=== PATIENT | male | born 2000 | race Caucasian/White ===

== ENCOUNTER 2021-09-03 17:59 | Emergency (ER) | payer OTHER ==
[~2021-09-03] VITALS: Ht 178 cm; Wt 115.0 kg
--- NOTE | 2021-09-03 18:32 | ED Neurological Problem ---
General Chief Complaint: Neurological Problems Stated Complaint: FACIAL NUMBNESS, EAR PAIN Source: patient Exam Limitations: no limitations History of Present Illness Date Seen by Provider: Sep 03, 2021 Time Seen by Provider: 18:26 Initial Comments With reports that he awakened with pain behind his left ear this morning and left-sided facial droop. No history of this. He is an international student from [employer] working on his [employer]. [place] 2 [place]. He is having trouble sleeping at night as well. Denies any recent illness fevers or chills. Denies any numbness or pain or tingling to fingers or legs. Timing/Duration: other (12 hours) Severity: moderate Allergies and Home Medications Allergies Coded Allergies: No Known Drug Allergies (Unverified , 09/03/21) Patient Home Medication List Home Medication List Reviewed: Yes Review of Systems Review of Systems Constitutional: see HPI Eyes: No Symptoms Reported, See HPI, Other (Left eye dryness) Ears, Nose, Mouth, Throat: no symptoms reported Respiratory: no symptoms reported Cardiovascular: no symptoms reported Genitourinary: no symptoms reported Musculoskeletal: no symptoms reported Skin: no symptoms reported Psychiatric/Neurological: No Symptoms Reported Endocrine: No Symptoms Reported Physical Exam Vital Signs Capillary Refill : Height, Weight, BMI Height: '" Weight: lbs. oz. kg; BMI Method: General Appearance: WD/WN, no apparent distress HEENT: PERRL/EOMI, normal ENT inspection, TMs normal, other (Tender to palpa tion behind the left ear but no erythema or lesions. No vesicles. Left side of the forehead is flaccid. He is unable to lift left eyebrow as he is able to do on the right. His smile is asymmetrical. Senior Network Security Engineer are equal. No upper or lower extremity deficits.) Respiratory: no respiratory distress, no accessory muscle use Cardiovascular: regular rate, rhythm, no murmur Gastrointestinal: normal bowel sounds, non tender Extremities: normal range of motion, non-tender Neurologic/Psychiatric: alert, normal mood/affect, oriented x 3 Crainal Nerves: normal hearing, normal speech, PERRL, facial asymmetry, facial droop, facial weakness Coordination/Gait: normal finger to nose Skin: normal color, warm/dry Departure Impression Primary Impression: Ojeda's palsy Disposition: 01 HOME, SELF-CARE Condition: Stable Departure-Patient Inst. Decision time for Depature: 18:29 Patient Instructions: Ojeda's Palsy Add. Discharge Instructions: 1. Steroids as directed. Antiviral medications as directed. Follow-up with [facility]. Return to ER for any worsening. Put some Visine drops in your left eye to keep it moistened and put some tape or an eye patch over the left eye to keep it closed at night while you are sleeping. All discharge instructions reviewed with patient and/or family. Voiced unders tanding. Scripts Doxylamine Succinate (Unisom Sleep Aid) 25 Mg Tablet 1-2 TAB PO HS, #14 TAB Prov: GANESH KOROMA APRN 09/03/21 Prednisone (Prednisone) 10 Mg Tab.ds.pk 10 MG PO DAILY, #54 EA Take 6 tabs(60mg)daily for 4 days, then decrease by 1 tab(10mg)every other day. Prov: GANESH KOROMA APRN 09/03/21 Valacyclovir HCl (Valacyclovir) 1,000 Mg Tablet 1000 MG PO TID, #21 TAB Prov: GANESH KOROMA APRN 09/03/21 GANESH KOROMA APRN Sep 03, 2021 18:32
[2021-09-03] MEDS ORDERED: VALA10007 PO (18:33)
[2021-09-03] MEDS ORDERED: PRED10TA22 PO (18:33)
[2021-09-03] MEDS ORDERED: DOXY25TA35 PO (18:33)
[2021-09-03] MEDS ORDERED: predniSONE 20 MG TAB PO ONE (18:45)
[2021-09-03] MEDS ORDERED: VALACYCLOVIR 500 MG TAB (VALTREX) PO SCH (18:45)
[2021-09-03 19:03] VITALS: BP 162/102
== END 2021-09-03 19:00 | disposition home or self-care (01) ==
LOC: ER 18:03
DX: G51.0 Bell's palsy (principal)
CPT/HCPCS: 99283

== ENCOUNTER 2022-07-02 13:29 | Emergency (ER) | payer OTHER ==
[~2022-07-02] VITALS: Ht 180 cm; Wt 95.0 kg
[~2022-07-02 13:29] MED LIST: DOXY25TA35 PO; PRED10TA22 PO; VALA10007 PO
[2022-07-02] MEDS ORDERED: D5 NS 1000 ML IV SOLUTION 1,000 ML IV STA (13:43)
[2022-07-02 13:59] LABS: CHLORIDE 104 MMOL/L (98-107); POTASSIUM 3.9 MMOL/L (3.6-5.0); SODIUM 139 MMOL/L (135-145)
[2022-07-02 14:00] LABS: ALBUMIN 4.9 GM/DL (3.2-4.5); BASOPHILS % (AUTO) 0 % (0-10); EOSINOPHILS % (AUTO) 0 % (0-10); HEMATOCRIT 51 % (40-54); LYMPHOCYTES # (AUTO) 2.1 10^3/uL (1.0-4.0); LYMPHOCYTES % (AUTO) 23 % (12-44); MEAN CORPUSCULAR HEMOGLOBIN 26 pg (25-34); MEAN CORPUSCULAR HGB CONC 34 g/dL (32-36); MEAN CORPUSCULAR VOLUME 77 fL (80-99); MEAN PLATELET VOLUME 10.5 fL (9.0-12.2); MONOCYTES # (AUTO) 0.6 10^3/uL (0.0-1.0); MONOCYTES % (AUTO) 6 % (0-12); NEUTROPHILS # (AUTO) 6.3 10^3/uL (1.8-7.8); NEUTROPHILS % (AUTO) 70 % (42-75); PLATELET COUNT 218 10^3/uL (130-400)
[2022-07-02 14:02] LABS: GLUCOSE 109 MG/DL (70-105); TOTAL PROTEIN 7.5 GM/DL (6.4-8.2)
[2022-07-02 14:03] LABS: CARBON DIOXIDE 19 MMOL/L (21-32)
[2022-07-02 14:04] LABS: BILIRUBIN,TOTAL 2.1 MG/DL (0.1-1.0)
[2022-07-02 14:06] LABS: ALKALINE PHOSPHATASE 76 U/L (40-136); GFR ESTIMATED 127
[2022-07-02] MEDS ORDERED: FAMOTIDINE 20 MG (PEPCID) TABLET PO STA (14:06)
--- NOTE | 2022-07-02 14:06 | ED GI ---
General Chief Complaint: Abdominal/GI Problems Stated Complaint: ELEV BLOOD PRESSURE/WEIGHT LOSS/VOMITING BLOOD Nursing Triage Note: PT CO OF VOMITING TODAY W STREAKS OF BLOOD IN IT. HAS LOST 30# IN A MONTH. PT STATES HAD SYNCOPAL EPIDODE TODAY Source of Information: Patient, Other ([id number]) Exam Limitations: No Limitations History of Present Illness Date Seen by Provider: Jul 02, 2022 Time Seen by Provider: 13:31 Initial Comments 22-year-old male with past medical history of depression and hypertension coming in due to 1 day of nonbloody nonbilious vomiting that eventually turned into vomiting with streaks of blood in it with nonbloody diarrhea and general malaise. He states he has been very stressed out with finals with school, is also having financial issues and potentially is going to get evicted, and has lost roughly 40 pounds in the past month because he does not want to eat due to lack of appetite. Denies any suicidal or homicidal thoughts. Denies any chest pain, shortness of breath, abdominal pain, focal weakness or numbness, or any other concerns. Rarely drinks alcohol, does not take blood thinners, does not use NSAIDs. No history of liver disease that he knows of. Allergies and Home Medications Allergies Coded Allergies: No Known Drug Allergies (Unverified , 09/03/21) Patient Home Medication List Home Medication List Reviewed: Yes Doxylamine Succinate (Unisom Sleep Aid) 25 Mg Tablet, 1-2 TAB PO HS Prescribed by: GANESH KOROMA on 09/03/211832 Prednisone (Prednisone) 10 Mg Tab.ds.pk, 10 MG PO DAILY Prescribed by: GANESH KOROMA on 09/03/211832 Valacyclovir HCl (Valacyclovir) 1,000 Mg Tablet, 1,000 MG PO TID Prescribed by: GANESH KOROMA on 09/03/211832 Review of Systems Review of Systems Constitutional: No fever EENTM: No Symptoms Reported Respiratory: No Symptoms Reported Cardiovascular: No Symptoms Reported Gastrointestinal: See HPI Genitourinary: No Symptoms Reported Musculoskeletal: no symptoms reported Skin: no symptoms reported Psychiatric/Neurological: No Symptoms Reported Endocrine: No Symptoms Reported Hematologic/Lymphatic: No Symptoms Reported All Other Systems Reviewed Negative Unless Noted: Yes Past Aedxyrq-Zkntib-Mpzpta Hx Patient Social History Tobacco Use?: Yes Tobacco type used: Cigarettes Smoking Status: Current Everyday Smoker Substance use?: Yes Substance type: Marijuana Substance frequency: Once in a while Alcohol Use?: Yes Alcohol type: Beer Alcohol Frequency: Rarely Pt feels they are or have been: No Immunizations Up To Date First/Initial COVID19 Vaccinat: YES Second COVID19 Vaccination Braden: YES Third COVID19 Vaccination Date: 02/04/21 Past Medical History Surgery/Hospitalization HX: HTN Surgeries: Yes Tonsillectomy Physical Exam Vital Signs Vital Signs - First Documented 07/02/22 13:30 Pulse 88 Resp 18 B/P (MAP) 199/118 (145) Pulse Ox 97 Capillary Refill : Less Than 3 Seconds Height/Weight/BMI Height: '" Weight: lbs. oz. kg; 29.00 BMI Method: General Appearance: WD/WN, no apparent distress HEENT: PERRL/EOMI, normal ENT inspection, pharynx normal Neck: non-tender, full range of motion, supple, normal inspection Respiratory: chest non-tender, lungs clear, normal breath sounds, no respiratory distress, no accessory muscle use Cardiovascular: regular rate, rhythm, no edema, no murmur Gastrointestinal: normal bowel sounds, non tender, soft; No distended, No guarding, No rebound Extremities: normal range of motion, non-tender, normal inspection, no pedal edema, no calf tenderness, normal capillary refill Back: normal inspection, no CVA tenderness Neurologic/Psychiatric: no motor/sensory deficits, alert, normal mood/affect, oriented x 3 Skin: normal color, warm/dry Lymphatic: no adenopathy Progress/Results/Core Measures Results/Orders Lab Results Laboratory Tests Test 07/02/22 13:38 07/02/22 13:56 07/02/22 14:00 Range/Units White Blood Count 9.0 4.3-11.0 10^3/uL Red Blood Count 6.62 H 4.30-5.52 10^6/uL Hemoglobin 17.0 13.3-17.7 g/dL Hematocrit 51 40-54 % Mean Corpuscular Volume 77 L 80-99 fL Mean Corpuscular Hemoglobin 26 25-34 pg Mean Corpuscular Hemoglobin Concent 34 32-36 g/dL Red Cell Distribution Width 13.8 10.0-14.5 % Platelet Count 218 130-400 10^3/uL Mean Platelet Volume 10.5 9.0-12.2 fL Immature Granulocyte % (Auto) 0 % Neutrophils (%) (Auto) 70 42-75 % Lymphocytes (%) (Auto) 23 12-44 % Monocytes (%) (Auto) 6 0-12 % Eosinophils (%) (Auto) 0 0-10 % Basophils (%) (Auto) 0 0-10 % Neutrophils # (Auto) 6.3 1.8-7.8 10^3/uL Lymphocytes # (Auto) 2.1 1.0-4.0 10^3/uL Monocytes # (Auto) 0.6 0.0-1.0 10^3/uL Eosinophils # (Auto) 0.0 0.0-0.3 10^3/uL Basophils # (Auto) 0.0 0.0-0.1 10^3/uL Immature Granulocyte # (Auto) 0.0 0.0-0.1 10^3/uL Prothrombin Time 13.8 12.2-14.7 SEC INR Comment 1.0 0.8-1.4 Activated Partial Thromboplast Time 32 24-35 SEC Sodium Level 139 135-145 MMOL/L Potassium Level 3.9 3.6-5.0 MMOL/L Chloride Level 104 98-107 MMOL/L Carbon Dioxide Level 19 L 21-32 MMOL/L Anion Gap 16 H 5-14 MMOL/L Blood Urea Nitrogen 6 L 7-18 MG/DL Creatinine 0.80 0.60-1.30 MG/DL Estimat Glomerular Filtration Rate 127 BUN/Creatinine Ratio 8 Glucose Level 109 H 70-105 MG/DL Calcium Level 10.0 8.5-10.1 MG/DL Corrected Calcium 8.5-10.1 MG/DL Magnesium Level 1.7 1.6-2.4 MG/DL Total Bilirubin 2.1 H 0.1-1.0 MG/DL Aspartate Amino Transf (AST/SGOT) 25 5-34 U/L Alanine Aminotransferase (ALT/SGPT) 39 0-55 U/L Alkaline Phosphatase 76 40-136 U/L Total Protein 7.5 6.4-8.2 GM/DL Albumin 4.9 H 3.2-4.5 GM/DL Lipase 11 8-78 U/L Thyroid Stimulating Hormone (TSH) 0.66 0.35-4.94 UIU/ML Salicylates Level < 5.0 L 5.0-20.0 MG/DL Acetaminophen Level < 10 L 10-30 UG/ML Serum Alcohol < 10 <10 MG/DL Influenza Type A (RT-PCR) Not Detected Not Detecte Influenza Type B (RT-PCR) Not Detected Not Detecte SARS-CoV-2 RNA (RT-PCR) Not Detected Not Detecte Urine Color YELLOW Urine Clarity CLEAR Urine pH 6.0 5-9 Urine Specific [place] >=1.030 1.016-1.022 Urine Protein 2+ H NEGATIVE Urine Glucose (UA) NEGATIVE NEGATIVE Urine Ketones 1+ H NEGATIVE Urine Nitrite NEGATIVE NEGATIVE Urine Bilirubin 1+ H NEGATIVE Urine Urobilinogen 0.2 < = 1.0 MG/DL Urine Leukocyte Esterase NEGATIVE NEGATIVE Urine RBC (Auto) NEGATIVE NEGATIVE Urine RBC NONE /HPF Urine WBC RARE /HPF Urine Squamous Epithelial Cells NONE /HPF Urine Crystals NONE /LPF Urine Bacteria NEGATIVE /HPF Urine Casts NONE /LPF Urine Mucus MODERATE H /LPF Urine Culture Indicated NO Urine Opiates Screen NEGATIVE NEGATIVE Urine Oxycodone Screen NEGATIVE NEGATIVE Urine Methadone Screen NEGATIVE NEGATIVE Urine Propoxyphene Screen NEGATIVE NEGATIVE Urine Barbiturates Screen NEGATIVE NEGATIVE Ur Tricyclic Antidepressants Screen NEGATIVE NEGATIVE Urine Phencyclidine Screen NEGATIVE NEGATIVE Urine Amphetamines Screen NEGATIVE NEGATIVE Urine Methamphetamines Screen NEGATIVE NEGATIVE Urine Benzodiazepines Screen NEGATIVE NEGATIVE Urine Cocaine Screen NEGATIVE NEGATIVE Urine Cannabinoids Screen POSITIVE H NEGATIVE My Orders Orders - SUZANNE ZAMORANO MD Acetaminophen (07/02/22 13:43) Alcohol (07/02/22 13:43) Cbc With Automated Diff (07/02/22 13:43) Comprehensive Metabolic Panel (07/02/22 13:43) Drug Screen Stat (Urine) (07/02/22 13:43) Lipase (07/02/22 13:43) Magnesium (07/02/22 13:43) Protime With Inr (07/02/22 13:43) Partial Thromboplastin Time (07/02/22 13:43) Salicylate (07/02/22 13:43) Thyroid Stimulating Hormone (07/02/22 13:43) Ua Culture If Indicated (07/02/22 13:43) Influenza A And B By Pcr (07/02/22 13:43) Chest 1 View, Ap/Pa Only (07/02/22 13:43) Ekg Tracing (07/02/22 13:43) Covid 19 Inhouse Test (07/02/22 13:43) D5 Ns 1000 Ml Iv Solution (Dextrose 5%/0 (07/02/22 13:43) Ed Iv/Invasive Line Start (07/02/22 13:43) Ondansetron Injection (Zofran Injectio (07/02/22 14:15) Famotidine Tablet (Pepcid Tablet) (07/02/22 14:06) Lr 1000 Ml Wide Open (07/02/22 14:42) Medications Given in ED Current Medications Medications Dose Ordered Sig/Mary Route Start Time Stop Time Status Last Admin Dose Admin Ondansetron HCl 4 mg ONCE ONCE IVP 07/02/22 14:15 07/02/22 14:16 DC 07/02/22 14:13 4 MG Vital Signs/I&O 07/02/22 13:30 Pulse 88 Resp 18 B/P (MAP) 199/118 (145) Pulse Ox 97 Blood Pressure Mean: 145 Progress Progress Note : Progress Note 22-year-old male with above history coming in due to nausea, vomiting streaked with red blood, and nonbloody diarrhea for the past 24 hours. ABCs were intact and vitals were stable on presentation although he is hypertensive. He was diagnosed with hypertension by the [facility], and is supposed to be starting on lisinopril. He just filled the prescription, has not taken it today due to vomiting. An IV was placed and basic labs were obtained. His hemoglobin appears slightly hemoconcentrated, urinalysis without evidence of infection but does have ketones, consistent with him eating less. In regards to him eating less, it does sound like depression related and stress related. TSH normal today. He does have follow-up with [facility] and they are managing this issue. He does not have any indications for acute psychiatric admission, no suicidality. EKG with no ischemic changes or concerns otherwise. Chest x-ray clear. Likely does have a viral GI bug with Clementine-Reddy tear. I believe he is otherwise stable for discharge with outpatient follow-up. He was sent home with strict return precautions Initial ECG Impression Date: Jul 02, 2022 Initial ECG Impression Time: 13:43 Initial ECG Rate: 68 Initial ECG Rhythm: Normal Sinus Comment Narrow QRS, normal axis, no significant ST changes or T wave abnormality Diagnostic Imaging Diagonstic Imaging: Xray Plain Films/CT/US/NM/MRI: chest Comments [facility], [facility]. [place], [place] NAME: CYRUS BYRD MED REC#: [id number] PT STATUS: REG ER : 2000 PHYSICIAN: SUZANNE ZAMORANO MD ADMIT DATE: 07/02/22/ER Draft Date of Exam:07/02/22 CHEST 1 VIEW, AP/PA ONLY INDICATION: Syncope COMPARISON: None available. TECHNIQUE: Single radiograph chest dated 07/02/2022. FINDINGS: The cardiac silhouette is within normal size. No significant pulmonary vascular congestion. The lungs are clear. No pleural effusion. No pneumothorax. No acute osseous abnormality. IMPRESSION: No acute cardiopulmonary abnormality. Dictated on workstation # [id number] Dict: 07/02/22 1425 Trans: 07/02/22 1433 CVB [id number] Interpreted by: FRAN HENDERSON MD Electronically signed by: Departure Impression Primary Impression: Vomiting and diarrhea Additional Impression: Clementine-Reddy tear Disposition: 01 HOME, SELF-CARE Condition: Stable Departure-Patient Inst. Decision time for Depature: 15:10 Referrals: [facility] (PCP/Family) Primary Care Physician Patient Instructions: Nausea and Vomiting, Adult ED Add. Discharge Instructions: You likely have a virus that is causing the vomiting and diarrhea which likely will get better in the next 30 days. Take the Zofran as needed for nausea. If you have any burning sensation you can buy [id number] Pepcid to help with this as well. If you start vomiting more significant amounts of blood where is not district of blood, but it is just only blood coming up we would want you to be reevaluated by a doctor. In regards to the vomiting blood that you are doing, it is likely you do have a Clementine-Reddy tear which is small tearing in the esophagus or stomach which causes the bleeding. Typically this heals on its own without difficulty. Try to force yourself to eat something with protein every day, you can add in a protein shake to help with nutrition if you are having difficulty eating due to lack of appetite. Work/School Note: School/Childcare Release, Date Seen in the Emergency Depa rtment: Jul 02, 2022 Time Dismissed from Emergency Department: 14:48 Return to School: Jul 04, 2022 Restrictions: Return-No Vomiting(24hrs) Work Release Form Date Seen in the Emergency Department: Jul 02, 2022 Return to Work: Jul 04, 2022 Restrictions: Return-No Vomiting(24hrs) SUZANNE ZAMORANO MD Jul 02, 2022 14:06
[2022-07-02 14:07] LABS: BUN/CREATININE RATIO 8; PROTHROMBIN TIME PATIENT 13.8 SEC (12.2-14.7)
[2022-07-02 14:09] LABS: ALANINE AMINOTRANSFERASE 39 U/L (0-55); SALICYLATE < 5.0 MG/DL (5.0-20.0)
[2022-07-02 14:10] LABS: MAGNESIUM 1.7 MG/DL (1.6-2.4)
[2022-07-02 14:11] LABS: CLARITY,URINE CLEAR; COLOR,URINE YELLOW; GLUCOSE, URINE (UA) NEGATIVE (NEGATIVE); KETONES,URINE 1+ (NEGATIVE); LEUKOCYTE ESTERASE ,URINE NEGATIVE (NEGATIVE); NITRITE,URINE NEGATIVE (NEGATIVE); PROTEIN,URINE 2+ (NEGATIVE)
[2022-07-02 14:11] LABS: LIPASE 11 U/L (8-78)
[2022-07-02 14:13] LABS: ACETAMINOPHEN < 10 UG/ML (10-30)
[2022-07-02] MEDS ORDERED: ONDANSETRON 4 MG/2 ML (SDV) Z0FRAN IVP ONE (14:15)
[2022-07-02 14:23] LABS: AMPHETAMINE SCREEN, URINE NEGATIVE (NEGATIVE); BARBITURATE SCREEN URINE NEGATIVE (NEGATIVE); BENZODIAZEPINES SCREEN URINE NEGATIVE (NEGATIVE); CANNABINOID SCREEN, URINE POSITIVE (NEGATIVE); COCAINE SCREEN URINE NEGATIVE (NEGATIVE); METHADONE STAT NEGATIVE (NEGATIVE); OPIATE SCREEN URINE NEGATIVE (NEGATIVE); OXYCODONE STAT NEGATIVE (NEGATIVE); PROPOXYPHENE STAT NEGATIVE (NEGATIVE); TRICYCLIC ANTIDEPRESSANTS SCRE NEGATIVE (NEGATIVE)
[2022-07-02 14:24] LABS: BILIRUBIN,URINE 1+ (NEGATIVE)
[2022-07-02 14:25] LABS: BACTERIA,URINE NEGATIVE /HPF; WBC,URINE RARE /HPF
--- NOTE | 2022-07-02 14:33 | Diagnostic Imaging Report ---
INDICATION: Syncope COMPARISON: None available. TECHNIQUE: Single radiograph chest dated 07/02/2022. FINDINGS: The cardiac silhouette is within normal size. No significant pulmonary vascular congestion. The lungs are clear. No pleural effusion. No pneumothorax. No acute osseous abnormality. IMPRESSION: No acute cardiopulmonary abnormality. Dictated by: Dictated on workstation # [id number]
[2022-07-02] MEDS ORDERED: LACTATED RINGERS 1,000 ML IV STA (14:42)
[2022-07-02 15:28] VITALS: BP 143/63
== END 2022-07-02 15:29 | disposition home or self-care (01) ==
LOC: EDUNIT# 13:29 → ER 13:31
DX: K22.6 Gastro-esophageal laceration-hemorrhage syndrome (principal); I10 Essential (primary) hypertension; F17.210 Nicotine dependence, cigarettes, uncomplicated; Z20.822 Contact with and (suspected) exposure to COVID-19
CPT/HCPCS: 71045; 80053; 80306; 81000; 83690; 83735; 84443; 85025; 85610; 85730; 87636; 93005; 99283; G0480 ×3; 36415; 80320; 80329